=== PATIENT | male | born 1960 | race Caucasian/White ===

== ENCOUNTER 2016-12-24 11:34 | Emergency (ER) | payer SELFPAY ==
[2016-12-24 11:35] VITALS: BP 147/78
[2016-12-24] MEDS ORDERED: HYDR-3719 PO (11:46)
[2016-12-24] MEDS ORDERED: FLOM5CAP PO (11:46)
[2016-12-24] MEDS ORDERED: GABA800T PO (11:46)
[2016-12-24] MEDS ORDERED: HYDR12CA PO (11:46)
[2016-12-24] MEDS ORDERED: MELO15TA4 PO (11:48)
== END 2016-12-24 12:13 | disposition left against medical advice (07) ==
LOC: M ED 11:34
DX: S69.92XA Unspecified injury of left wrist, hand and finger(s), initial encounter (principal); X58.XXXA Exposure to other specified factors, initial encounter; Y92.89 Other specified places as the place of occurrence of the external cause; Y93.89 Activity, other specified; Y99.8 Other external cause status; Z53.29 Procedure and treatment not carried out because of patient's decision for other reasons

== ENCOUNTER → 2018-08-17 | Outpatient (CLI) | payer OTHER ==
[~2018-08-17] MED LIST: ATOR1TAB19 PO; FLOM0.4C39 PO; GABA800T4 PO; HYDR-3719 PO; HYDR12CA PO; LISI10TA4 PO; MELO15TA28 PO; SERT-155 PO
--- NOTE | 2018-08-17 13:10 | ECGEPIP ---
Stationary ECG Study [facility] Test Date: 2018-08-17 Pat Name: CRISTOFER BELTRAN Department: Room: - Gender: M Ball Winder: : 1960 Requested By: DANN Kuo Order Number: [id number] Reading MD: Claudy Moore Measurements Intervals Counselor Rate: 57 P: 53 ID: [id number] QRS: 52 QRSD: 101 T: 51 QT: 394 QTc: 384 Interpretive Statements Sinus bradycardia Small inferior Q waves with prominent R waves in V1 through V4; RVH versus prior inferoposterior ND No prior tracing for comparison Clinical correlation advised Electronically Signed On 08-17-2018 13:10:07 EDT by Claudy Moore
== END ==
LOC: M EKG 12:17
PROVIDERS: ATTEND Specialist
DX: R00.1 Bradycardia, unspecified (principal); I10 Essential (primary) hypertension

== ENCOUNTER 2018-08-20 06:56 | Day surgery (SDC) | payer OTHER ==
[2018-08-20] VITALS (9 sets, daily range): BP systolic 131–152; BP diastolic 70–77
[~2018-08-20] VITALS: Ht 182.9 cm; Wt 107.0 kg
[~2018-08-20 06:56] MED LIST changes: +LR 1,000 ML IV ONE
[2018-08-20] MEDS ORDERED: PROPOFOL 200 MG/20 ML VIAL As Ordered ONE (08:00)
[2018-08-20] MEDS ORDERED: ROCURONIUM BROMIDE 50 MG/5 ML VIAL As Ordered ONE (08:00)
[2018-08-20] MEDS ORDERED: dexameTHASONE 4 MG/ML 1ML VIAL (J1100) As Ordered ONE (08:00)
[2018-08-20] MEDS ORDERED: LIDOCAINE 2% INJ 100 MG/5 ML SDV (FOR ANES.) As Ordered ONE (08:00)
[2018-08-20] MEDS ORDERED: fentaNYL 100 MCG/2 ML INJECTION (J3010) As Ordered ONE ×2 (08:00→08:01)
[2018-08-20] MEDS ORDERED: MIDAZOLAM INJ 2 MG/2 ML VIAL (J2250) As Ordered ONE (08:01)
[2018-08-20] MEDS ORDERED: SUGAMMADEX SODIUM 500 MG/5 ML VIAL (BRIDION) As Ordered ONE (08:08)
[2018-08-20] MEDS ORDERED: ONDANSETRON 4MG/2ML VIAL (J2405) As Ordered ONE (08:09)
[2018-08-20] MEDS ORDERED: LIDOCAINE W/EPINEPHRINE 1% 20ML VIAL As Ordered ONE (08:43)
[2018-08-20] MEDS ORDERED: OXYMETAZOLINE NASAL SPRAY (AFRIN) As Ordered ONE (08:43)
[2018-08-20] MEDS ORDERED: METHYLENE BLUE 0.5% (5MG/ML) 10 ML AMP (PROVAYBLUE)(Q9968 PER 1MG) As Ordered ONE (08:43)
[2018-08-20] MEDS: IBUPROFEN 800 MG TAB PO SCH ×3 (09:00→20:43)
[2018-08-20] MEDS ORDERED: ONDANSETRON 4MG/2ML VIAL (J2405) IV PRN (10:15)
[2018-08-20] MEDS ORDERED: PERCOCET 5MG/325MG TAB PO PRN (10:15)
[2018-08-20] MEDS ORDERED: LR 1,000 ML IV SCH (10:15)
[2018-08-20] MEDS ORDERED: METOCLOPRAMIDE INJ 10MG/2ML VIAL (J2765) IV PRN (10:15)
[2018-08-20] MEDS: fentaNYL 100 MCG/2 ML INJECTION (J3010) IV PRN ×4 (10:20→10:35)
[2018-08-20] MEDS: PERCOCET 5MG/325MG TAB PO PRN ×2 (16:20→20:43)
[2018-08-20] MEDS: GABAPENTIN 400 MG CAP PO SCH ×2 (16:52→20:42)
[2018-08-20] MEDS ORDERED: SERTRALINE HCL 50 MG TAB PO SCH (21:00)
[2018-08-20] MEDS ORDERED: LISINOPRIL 10 MG TAB PO SCH (21:00)
[2018-08-21] VITALS: BP 151/86
[2018-08-21] MEDS: PERCOCET 5MG/325MG TAB PO PRN ×3 (00:24→10:06)
[2018-08-21 04:00] VITALS: BP 133/70
[2018-08-21 08:00] VITALS: BP 141/84
[2018-08-21] MEDS: IBUPROFEN 800 MG TAB PO SCH (08:26)
[2018-08-21] MEDS: GABAPENTIN 400 MG CAP PO SCH (08:26)
[2018-08-21] MEDS ORDERED: TAMSULOSIN 0.4 MG CAP PO SCH (09:00)
== END 2018-08-21 10:42 | disposition home or self-care (01) ==
LOC: M SDC 06:56 → M PED 12:40 → M SDC 08-21 10:42
PROVIDERS: ATTEND Specialist
DX: J34.2 Deviated nasal septum (principal); J31.0 Chronic rhinitis; I10 Essential (primary) hypertension; K21.9 Gastro-esophageal reflux disease without esophagitis; Z86.718 Personal history of other venous thrombosis and embolism; Z79.899 Other long term (current) drug therapy
CPT/HCPCS: 30140; 30520; 88300; J1100; J2250; J2405; J3010; Q9968

== ENCOUNTER 2024-01-27 15:13 | Emergency (ER) | payer OTHER ==
[~2024-01-27] VITALS: Ht 185.4 cm; Wt 111.4 kg
[~2024-01-27 15:13] MED LIST changes: +GABA-1635 PO; -GABA800T4 PO; +LISI10TA22 PO; -LISI10TA4 PO; -LR 1,000 ML IV ONE; -SERT-155 PO; +SERT50TA29 PO
[2024-01-27] MEDS ORDERED: VITA100093 PO (15:25)
[2024-01-27] MEDS ORDERED: NAPR-885 PO (15:25)
[2024-01-27 20:00] LABS: HEMATOCRIT 38.4 % (42.0-52.0); MEAN CORPUSCULAR HEMOGLOBIN 28.6 pg (27.0-33.0); MEAN CORPUSCULAR HGB CONC 33.9 g/dl (32.0-36.5); MEAN CORPUSCULAR VOLUME 84.4 fl (80.0-96.0); PLATELET COUNT, AUTOMATED 222 10^3/uL (150-450); RED BLOOD COUNT 4.55 10^6/uL (4.30-6.10); WHITE BLOOD COUNT 8.8 10^3/uL (4.0-10.0)
[2024-01-27] MEDS: dexAMETHasone 20MG/5ML VIAL IV ONE (20:09)
[2024-01-27] MEDS: KETOROLAC 30 MG/ML 1ML VIAL IV ONE (20:10)
[2024-01-27] MEDS: tiZANidine 4 MG TAB PO ONE (20:10)
[2024-01-27 20:28] LABS: ALBUMIN 4.1 G/DL (3.2-5.2); BILIRUBIN,TOTAL 0.6 MG/DL (0.3-1.2); CALCIUM LEVEL 11.4 MG/DL (8.3-10.6); CREATININE FOR GFR 2.13 MG/DL (0.70-1.30); GLOMERULAR FILTRATION RATE 33.5 (>49); POTASSIUM SERUM 3.8 MMOL/L (3.5-5.1); TOTAL PROTEIN 7.2 G/DL (5.7-8.2)
[2024-01-27] MEDS ORDERED: PERC5TAB12 PO (20:57)
[2024-01-27] MEDS ORDERED: PRED20TA PO (20:59)
[2024-01-27] MEDS ORDERED: TIZA4CAP PO (21:00)
[2024-01-27 21:57] VITALS: BP 123/67; TEMP 97.3; O2SAT 95
== END 2024-01-27 22:01 | disposition home or self-care (01) ==
LOC: M ED 15:13
DX: M54.16 Radiculopathy, lumbar region (principal); M54.41 Lumbago with sciatica, right side
CPT/HCPCS: 72131; 80053; 85027; 96374; 96375; 99284; J1100; J1885